=== PATIENT | female | born 1965 | race Caucasian/White ===

== ENCOUNTER 2018-06-02 15:03 | Emergency (ER) | payer SELFPAY ==
[~2018-06-02] VITALS: Ht 170.2 cm; Wt 70.3 kg
[2018-06-02 15:14] VITALS: BP 135/87; Ht 170.2 cm; Wt 70.3 kg
== END 2018-06-02 16:30 | disposition home or self-care (01) ==
LOC: ED 15:03
DX: S80.01XA Contusion of right knee, initial encounter (principal); M54.2 Cervicalgia; M54.5 Low back pain; M54.6 Pain in thoracic spine; V89.2XXA Person injured in unspecified motor-vehicle accident, traffic, initial encounter; Y93.73 Activity, racquet and hand sports; Y92.488 Other paved roadways as the place of occurrence of the external cause; Y99.8 Other external cause status